=== PATIENT | female | born 1950 | race Caucasian/White ===

== ENCOUNTER 2020-08-20 17:44 | Emergency (ER) | payer MEDICARE ==
[~2020-08-20] VITALS: Ht 172.7 cm; Wt 82.7 kg
[~2020-08-20 17:44] MED LIST: CYCLOBENZAPRINE5 MG PO; GABAPENTIN300 MG PO; MOTRIN200 MG PO; OXYCODONE-ACET1 EAC1 PO; SYNTHROID50 MCG PO; [UNRECOGNIZED DRUG - OTHER]
== END 2020-08-20 19:05 | disposition home or self-care (01) ==
LOC: FSED 18:04
DX: S40.012A Contusion of left shoulder, initial encounter (principal); W18.30XA Fall on same level, unspecified, initial encounter; Y92.008 Other place in unspecified non-institutional (private) residence as the place of occurrence of the external cause; I10 Essential (primary) hypertension; I69.354 Hemiplegia and hemiparesis following cerebral infarction affecting left non-dominant side
CPT/HCPCS: 99283

== ENCOUNTER → 2020-11-30 | Day surgery (SDC) | payer MEDICARE ==
[2020-11-28 15:42] LABS: BASOPHILS # (AUTO) 0.1 (0.0-0.1); EOSINOPHILS # (AUTO) 0.3 (0.0-0.4); HEMATOCRIT 36.4 % (34.2-44.1); HEMOGLOBIN 10.8 g/dL (12.0-16.0); LYMPHOCYTES # (AUTO) 2.8 (1.0-3.2); LYMPHOCYTES % 44.6 % (18.0-39.1); MEAN CORPUSCULAR HEMOGLOBIN 24.9 pg (28-32); MEAN CORPUSCULAR HGB CONC 29.7 g/dL (31-35); MEAN CORPUSCULAR VOLUME 83.9 fL (81-99); MONOCYTES # (AUTO) 0.4 (0.2-0.8); MONOCYTES % 5.9 % (4.4-11.3); NEUTROPHILS # (AUTO) 2.7 (2.1-6.9); NEUTROPHILS % 43.2 % (38.7-80.0); PLATELET COUNT 223 x10e3/uL (140-360); RED BLOOD COUNT 4.34 x10e6/uL (3.6-5.1); RED CELL DISTRIBUTION WIDTH 14.8 % (11.7-14.4)
[~2020-11-30] MED LIST changes: +ADDERALL 5 MG TA5 MG; +ASPIRIN EC81 MG PO; +CYMBALTA30 MG PO; +FLOMAX0.4 MG PO; +LIDOCAINE HCL 2% LOCAL INJ 5 ML SDV VIAL INJ ONE; +LIPITOR20 MG PO; +METFORMIN HCL500 MG PO; +OXYCODONE HCL20 M1 PO; +PANTOPRAZOLE SO40 MG PO; +PLAVIX75 MG PO; +PROPOFOL IV EMULSION 10 MG/ML 20 ML VIAL ONE; +SYMBICORT 16010.2 GM INH; +TRAZODONE HCL150 MG PO; +TRULANCE3 MG; +VITAMIN D250 MCG; +WELLBUTRIN SR150 MG PO
[2020-11-30 09:46] VITALS: BP 106/67
== END | disposition home or self-care (01) ==
LOC: OR 06:57
PROVIDERS: ATTEND Internal Medicine Gastroenterology
DX: K22.70 Barrett's esophagus without dysplasia (principal); K44.9 Diaphragmatic hernia without obstruction or gangrene; K29.50 Unspecified chronic gastritis without bleeding; K57.30 Diverticulosis of large intestine without perforation or abscess without bleeding; K64.8 Other hemorrhoids; K59.00 Constipation, unspecified; R11.0 Nausea; E11.9 Type 2 diabetes mellitus without complications; E66.3 Overweight; Z68.29 Body mass index [BMI] 29.0-29.9, adult; Z71.3 Dietary counseling and surveillance; Z91.040 Latex allergy status; Z91.048 Other nonmedicinal substance allergy status; J44.9 Chronic obstructive pulmonary disease, unspecified; Z86.010 Personal history of colon polyps; F32.9 Major depressive disorder, single episode, unspecified; G47.33 Obstructive sleep apnea (adult) (pediatric); K76.0 Fatty (change of) liver, not elsewhere classified; K58.9 Irritable bowel syndrome, unspecified; K80.80 Other cholelithiasis without obstruction; K21.9 Gastro-esophageal reflux disease without esophagitis; Z01.810 Encounter for preprocedural cardiovascular examination; Z01.812 Encounter for preprocedural laboratory examination; Z79.82 Long term (current) use of aspirin; Z79.84 Long term (current) use of oral hypoglycemic drugs
CPT/HCPCS: 36415 ×2; 43239; 45378; 82948; 85025; 93005; J2001; J2704; U0002

== ENCOUNTER 2020-12-16 19:04 | Emergency (ER) | payer MEDICARE ==
[~2020-12-16] VITALS: Ht 172.7 cm; Wt 82.6 kg
[~2020-12-16 19:04] MED LIST changes: -LIDOCAINE HCL 2% LOCAL INJ 5 ML SDV VIAL INJ ONE; -PROPOFOL IV EMULSION 10 MG/ML 20 ML VIAL ONE
[2020-12-16] MEDS ORDERED: SODIUM CHLORIDE 0.9% 50ML 50 ML ONE (20:49)
[2020-12-16] MEDS ORDERED: IOPAMIDOL 370 MG/ML 200 ML INFUS..BTL INJ ONE (20:50)
[2020-12-16] MEDS ORDERED: ONDANSETRON ODT4 MG PO (22:39)
[2020-12-16] MEDS ORDERED: MIRALAX17 GM PO (22:39)
== END 2020-12-16 23:07 | disposition home or self-care (01) ==
LOC: FSED 19:30
DX: R09.02 Hypoxemia (principal); R10.30 Lower abdominal pain, unspecified; Z20.822 Contact with and (suspected) exposure to COVID-19; I10 Essential (primary) hypertension; R94.31 Abnormal electrocardiogram [ECG] [EKG]; Z86.73 Personal history of transient ischemic attack (TIA), and cerebral infarction without residual deficits
CPT/HCPCS: 71260; 74177; 80053; 82553; 83880; 84484; 85025; 85379; 93005; 99284; Q9967; U0002

== ENCOUNTER 2021-08-10 18:27 | Emergency (ER) | payer MEDICARE ==
[~2021-08-10] VITALS: Ht 172.7 cm; Wt 82.6 kg
[~2021-08-10 18:27] MED LIST changes: +MIRALAX17 GM PO; +ONDANSETRON ODT4 MG PO
[2021-08-10 19:12] LABS: BASOPHILS # (AUTO) 0.1 (0.0-0.1); BASOPHILS % 0.9 % (0.0-1.0); EOSINOPHILS # (AUTO) 0.2 (0.0-0.4); EOSINOPHILS % 2.1 % (0.0-6.0); HEMATOCRIT 38.6 % (34.2-44.1); HEMOGLOBIN 11.9 g/dL (12.0-16.0); LYMPHOCYTES # (AUTO) 3.9 (1.0-3.2); LYMPHOCYTES % 39.9 % (18.0-39.1); MEAN CORPUSCULAR HEMOGLOBIN 24.9 pg (28-32); MEAN CORPUSCULAR HGB CONC 30.8 g/dL (31-35); MEAN CORPUSCULAR VOLUME 80.8 fL (81-99); MONOCYTES # (AUTO) 0.6 (0.2-0.8); MONOCYTES % 6.3 % (4.4-11.3); NEUTROPHILS # (AUTO) 4.9 (2.1-6.9); NEUTROPHILS % 50.6 % (38.7-80.0); PLATELET COUNT 280 x10e3/uL (140-360); RED BLOOD COUNT 4.78 x10e6/uL (3.6-5.1); RED CELL DISTRIBUTION WIDTH 15.9 % (11.7-14.4)
[2021-08-10 19:21] LABS: INR 0.88; PROTHROMBIN TIME 12.8 seconds (11.9-14.5)
[2021-08-10 19:28] LABS: CLARITY,URINE CLEAR (CLEAR); COLOR,URINE YELLOW (YELLOW)
[2021-08-10 19:29] LABS: KETONES,URINE NEGATIVE (NEGATIVE); LEUKOCYTE ESTERASE ,URINE TRACE (NEGATIVE); NITRITE,URINE NEGATIVE (NEGATIVE); PROTEIN,URINE DIPSTICK NEGATIVE (NEGATIVE); URINE UROBILINOGEN 0.2 mg/dL (0.2 - 1)
[2021-08-10 19:30] LABS: ALBUMIN 3.7 g/dL (3.5-5.0); ALBUMIN/GLOBULIN RATIO 1.1 (0.8-2.0); ANION GAP 12.1 mmol/L (8-16); CREATININE, SERUM 0.91 mg/dL (0.57-1.11); POTASSIUM 4.1 mmol/L (3.5-5.1)
[2021-08-10 19:37] LABS: BACTERIA,URINE FEW /HPF; EPITHELIAL CELLS,URINE MODERATE /LPF; RBC,URINE 0-5 /HPF (0-5); WBC,URINE (MAN) 0-5 /HPF (0-5)
[2021-08-10] MEDS ORDERED: SODIUM CHLORIDE 0.9% 100 ML ONE (20:05)
[2021-08-10] MEDS ORDERED: IOPAMIDOL 370 MG/ML 200 ML INFUS..BTL INJ ONE (20:05)
[2021-08-10] MEDS ORDERED: SODIUM CHLORIDE 0.9% 1000ML 1,000 ML IV STA (21:16)
[2021-08-10] MEDS ORDERED: SODIUM CHLORIDE 0.9% 1000ML 1,000 ML ONE (21:28)
[2021-08-10 22:24] VITALS: BP 100/65
== END 2021-08-10 22:29 | disposition home or self-care (01) ==
LOC: ER 18:37
DX: K92.2 Gastrointestinal hemorrhage, unspecified (principal); K76.0 Fatty (change of) liver, not elsewhere classified; I10 Essential (primary) hypertension; Z91.040 Latex allergy status; Z91.048 Other nonmedicinal substance allergy status; Z20.822 Contact with and (suspected) exposure to COVID-19; Z79.82 Long term (current) use of aspirin; Z79.02 Long term (current) use of antithrombotics/antiplatelets; Z79.84 Long term (current) use of oral hypoglycemic drugs; Z79.899 Other long term (current) drug therapy; Z86.73 Personal history of transient ischemic attack (TIA), and cerebral infarction without residual deficits
CPT/HCPCS: 36415; 74174; 80053; 81001; 85025; 85610; 86850; 86900; 93005; 99284; J7030; J7050; Q9967; U0002

== ENCOUNTER 2021-10-02 00:59 | Observation (INO) | payer MEDICARE ==
[~2021-10-02] VITALS: Ht 165.1 cm; Wt 88.5 kg
[2021-10-02] MEDS ORDERED: ACETAMINOPHEN 325 MG TAB PO ONE (01:15)
[2021-10-02] MEDS ORDERED: SODIUM CHLORIDE 0.9% 1000ML 1,000 ML IV ONE (01:15)
[2021-10-02] MEDS ORDERED: ACETAMINOPHEN 325 MG TAB ONE (01:22)
[2021-10-02 01:28] LABS: BASOPHILS # (AUTO) 0.1 (0.0-0.1); BASOPHILS % 0.7 % (0.0-1.0); EOSINOPHILS # (AUTO) 0.4 (0.0-0.4); EOSINOPHILS % 4.2 % (0.0-6.0); HEMATOCRIT 35.8 % (34.2-44.1); HEMOGLOBIN 10.8 g/dL (12.0-16.0); LYMPHOCYTES # (AUTO) 1.5 (1.0-3.2); MEAN CORPUSCULAR HEMOGLOBIN 24.3 pg (28-32); MEAN CORPUSCULAR HGB CONC 30.2 g/dL (31-35); MEAN CORPUSCULAR VOLUME 80.6 fL (81-99); MONOCYTES # (AUTO) 0.5 (0.2-0.8); MONOCYTES % 5.9 % (4.4-11.3); NEUTROPHILS # (AUTO) 6.2 (2.1-6.9); NEUTROPHILS % 71.9 % (38.7-80.0); PLATELET COUNT 268 x10e3/uL (140-360); RED BLOOD COUNT 4.44 x10e6/uL (3.6-5.1)
[2021-10-02] MEDS ORDERED: CEFTRIAXONE 1 GM VIAL ONE (01:29)
[2021-10-02] MEDS ORDERED: SODIUM CHLORIDE 0.9% 1000ML 1,000 ML ONE (01:29)
[2021-10-02 01:45] LABS: ALANINE AMINOTRANSFERASE 16 IU/L (0-55); ALBUMIN 3.6 g/dL (3.5-5.0); ALKALINE PHOSPHATASE 89 IU/L (40-150); ANION GAP 15.1 mmol/L (8-16); BLOOD UREA NITROGEN 10 mg/dL (7-26); BUN/CREATININE RATIO 12 (6-25); CALCIUM 9.2 mg/dL (8.4-10.2); CARBON DIOXIDE 23 mmol/L (22-29); CHLORIDE 105 mmol/L (98-107); CREATINE KINASE 80 IU/L (29-168); CREATININE, SERUM 0.83 mg/dL (0.57-1.11); GLUCOSE 115 mg/dL (74-118); POTASSIUM 4.1 mmol/L (3.5-5.1); SODIUM 139 mmol/L (136-145)
[2021-10-02 01:48] LABS: CLARITY,URINE CLEAR (CLEAR); COLOR,URINE YELLOW (YELLOW); KETONES,URINE NEGATIVE (NEGATIVE); LEUKOCYTE ESTERASE ,URINE NEGATIVE (NEGATIVE); NITRITE,URINE NEGATIVE (NEGATIVE); PROTEIN,URINE DIPSTICK NEGATIVE (NEGATIVE); URINE UROBILINOGEN 0.2 mg/dL (0.2 - 1)
[2021-10-02 01:55] LABS: BACTERIA,URINE FEW /HPF; EPITHELIAL CELLS,URINE RARE /LPF; RBC,URINE 0-5 /HPF (0-5); WBC,URINE (MAN) 0-5 /HPF (0-5)
[2021-10-02] MEDS ORDERED: ONDANSETRON HCL INJ 2MG/ML 2ML 2 MG/ML VIAL IV STA (03:10)
[2021-10-02] MEDS ORDERED: ONDANSETRON HCL INJ 2MG/ML 2ML 2 MG/ML VIAL IV PRN (03:30)
[2021-10-02] MEDS: SODIUM CHLORIDE 0.9% 1000ML 1,000 ML IV SCH ×3 (03:36→21:36)
[2021-10-02] MEDS: ALBUTEROL SULF 0.083% NEB SOLN 3 ML NEB NEB SCH ×6 (04:00→23:30)
[2021-10-02] MEDS: IPRATROPIUM BROMIDE 0.02% 2.5 ML NEB NEB SCH ×5 (04:00→23:46)
[2021-10-02] MEDS ORDERED: IOPAMIDOL 370 MG/ML 100 ML INFUS..BTL INJ ONE (07:05)
[2021-10-02 09:53] LABS: CREATINE KINASE 58 IU/L (29-168)
[2021-10-02] MEDS: OXYCODONE HCL 10 MG TAB CR PO SCH ×2 (14:36→21:00)
[2021-10-02] MEDS ORDERED: NON-FORMULARY MEDICATION (Cyclobenzaprine Hcl (Flexeril) 10 MG) PO SCH (15:00)
[2021-10-02] MEDS: CYCLOBENZAPRINE HCL 10 MG TAB PO SCH ×2 (15:25→21:37)
[2021-10-02] MEDS: ACETAMINOPHEN 325 MG TAB PO PRN ×2 (15:50→22:08)
[2021-10-02 18:22] LABS: CREATINE KINASE 82 IU/L (29-168)
[2021-10-02 19:00] VITALS: BP 125/66
[2021-10-02 19:49] VITALS: BP 125/66
[2021-10-02] MEDS: TRAZODONE HCL 50 MG TAB PO SCH (21:36)
[2021-10-02] MEDS: ATORVASTATIN 40 MG TAB PO SCH (21:37)
[2021-10-03] VITALS (8 sets, daily range): BP systolic 108–137; BP diastolic 62–74
[2021-10-03] MEDS ORDERED: GABAPENTIN400 MG PO (00:32)
[2021-10-03] MEDS: SODIUM CHLORIDE 0.9% 1000ML 1,000 ML IV SCH ×3 (00:33→20:05)
[2021-10-03] MEDS: ALBUTEROL SULF 0.083% NEB SOLN 3 ML NEB NEB SCH ×5 (03:06→20:16)
[2021-10-03] MEDS: IPRATROPIUM BROMIDE 0.02% 2.5 ML NEB NEB SCH ×2 (03:07→18:52)
[2021-10-03 05:53] LABS: BASOPHILS # (AUTO) 0.1 (0.0-0.1); BASOPHILS % 1.3 % (0.0-1.0); EOSINOPHILS # (AUTO) 0.2 (0.0-0.4); EOSINOPHILS % 3.5 % (0.0-6.0); HEMATOCRIT 31.2 % (34.2-44.1); HEMOGLOBIN 9.2 g/dL (12.0-16.0); LYMPHOCYTES # (AUTO) 1.7 (1.0-3.2); LYMPHOCYTES % 38.1 % (18.0-39.1); MEAN CORPUSCULAR HEMOGLOBIN 24.4 pg (28-32); MEAN CORPUSCULAR HGB CONC 29.5 g/dL (31-35); MEAN CORPUSCULAR VOLUME 82.8 fL (81-99); MONOCYTES # (AUTO) 0.6 (0.2-0.8); MONOCYTES % 12.7 % (4.4-11.3); NEUTROPHILS % 44.2 % (38.7-80.0); PLATELET COUNT 215 x10e3/uL (140-360); RED BLOOD COUNT 3.77 x10e6/uL (3.6-5.1); RED CELL DISTRIBUTION WIDTH 15.5 % (11.7-14.4)
[2021-10-03] MEDS: LEVOTHYROXINE SODIUM 25 MCG TABLET PO SCH (06:13)
[2021-10-03] MEDS: LEVOTHYROXINE SODIUM 112 MCG TAB PO SCH (06:13)
[2021-10-03] MEDS: ACETAMINOPHEN 325 MG TAB PO PRN ×2 (06:13→17:25)
[2021-10-03 06:14] LABS: ALBUMIN 2.8 g/dL (3.5-5.0); ANION GAP 12.5 mmol/L (8-16); CALCIUM 7.9 mg/dL (8.4-10.2); CREATININE, SERUM 0.64 mg/dL (0.57-1.11); POTASSIUM 3.5 mmol/L (3.5-5.1)
[2021-10-03] MEDS ORDERED: LEVOTHYROXINE SODIUM 50 MCG TAB PO SCH (06:30)
[2021-10-03] MEDS: TAMSULOSIN HCL 0.4 MG CAP PO SCH (09:00)
[2021-10-03] MEDS: OXYCODONE HCL 10 MG TAB CR PO SCH ×3 (09:11→20:05)
[2021-10-03] MEDS: PANTOPRAZOLE SOD 40 MG TABEC PO SCH (09:11)
[2021-10-03] MEDS: CLOPIDOGREL BISULFATE 75 MG TAB PO SCH (09:11)
[2021-10-03] MEDS: DULOXETINE HCL 30 MG DELAYED RELEASE PO SCH (09:11)
[2021-10-03] MEDS: CYCLOBENZAPRINE HCL 10 MG TAB PO SCH ×3 (09:11→20:05)
[2021-10-03] MEDS: GABAPENTIN 400 MG CAP PO SCH ×3 (09:11→20:05)
[2021-10-03] MEDS ORDERED: LOPERAMIDE HCL 2 MG CAP PO ONE (15:15)
[2021-10-03] MEDS: ASPIRIN 81 MG ENTERIC COATED PO SCH (17:25)
[2021-10-03] MEDS: METFORMIN HCL 500 MG TAB PO SCH (17:25)
[2021-10-03] MEDS ORDERED: ONDANSETRON HCL 4 MG ORAL DISINTEGRATING TAB PO PRN (19:30)
[2021-10-03] MEDS ORDERED: CALCIUM CARBONATE 500 MG CHEWABLE TABS PO PRN (19:45)
[2021-10-03] MEDS: TRAZODONE HCL 50 MG TAB PO SCH (20:05)
[2021-10-03] MEDS: ATORVASTATIN 40 MG TAB PO SCH (20:05)
[2021-10-03] MEDS ORDERED: TRAZODONE HCL 50 MG TAB PO SCH (21:00)
[2021-10-04] VITALS: BP 114/53
[2021-10-04] MEDS: ALBUTEROL SULF 0.083% NEB SOLN 3 ML NEB NEB SCH ×4 (00:17→10:15)
[2021-10-04] MEDS: IPRATROPIUM BROMIDE 0.02% 2.5 ML NEB NEB SCH ×3 (00:18→10:15)
[2021-10-04] MEDS: ACETAMINOPHEN 325 MG TAB PO PRN ×2 (00:43→12:13)
[2021-10-04 04:00] VITALS: BP 113/67
[2021-10-04] MEDS: LEVOTHYROXINE SODIUM 112 MCG TAB PO SCH (05:57)
[2021-10-04] MEDS: LEVOTHYROXINE SODIUM 25 MCG TABLET PO SCH (05:57)
[2021-10-04] MEDS ORDERED: AZITHROMYCIN 250 MG TAB PO SCH (06:00)
[2021-10-04] MEDS: SODIUM CHLORIDE 0.9% 1000ML 1,000 ML IV SCH ×2 (06:19→11:15)
[2021-10-04] MEDS: METFORMIN HCL 500 MG TAB PO SCH (08:00)
[2021-10-04 08:30] VITALS: BP 125/77
[2021-10-04] MEDS: TAMSULOSIN HCL 0.4 MG CAP PO SCH (09:00)
[2021-10-04 09:43] LABS: BASOPHILS # (AUTO) 0.1 (0.0-0.1); BASOPHILS % 1.5 % (0.0-1.0); EOSINOPHILS # (AUTO) 0.3 (0.0-0.4); EOSINOPHILS % 5.5 % (0.0-6.0); HEMATOCRIT 34.9 % (34.2-44.1); HEMOGLOBIN 9.8 g/dL (12.0-16.0); LYMPHOCYTES # (AUTO) 2.5 (1.0-3.2); MEAN CORPUSCULAR HEMOGLOBIN 24.2 pg (28-32); MEAN CORPUSCULAR HGB CONC 28.1 g/dL (31-35); MEAN CORPUSCULAR VOLUME 86.2 fL (81-99); MONOCYTES # (AUTO) 0.6 (0.2-0.8); MONOCYTES % 10.4 % (4.4-11.3); NEUTROPHILS # (AUTO) 1.8 (2.1-6.9); NEUTROPHILS % 34.4 % (38.7-80.0); PLATELET COUNT 209 x10e3/uL (140-360); RED BLOOD COUNT 4.05 x10e6/uL (3.6-5.1); RED CELL DISTRIBUTION WIDTH 15.8 % (11.7-14.4)
[2021-10-04 09:45] VITALS: BP 125/77
[2021-10-04] MEDS: DULOXETINE HCL 30 MG DELAYED RELEASE PO SCH (10:04)
[2021-10-04] MEDS: PANTOPRAZOLE SOD 40 MG TABEC PO SCH (10:04)
[2021-10-04] MEDS: CLOPIDOGREL BISULFATE 75 MG TAB PO SCH (10:04)
[2021-10-04] MEDS: CYCLOBENZAPRINE HCL 10 MG TAB PO SCH (10:04)
[2021-10-04] MEDS: GABAPENTIN 400 MG CAP PO SCH (10:04)
[2021-10-04] MEDS: OXYCODONE HCL 10 MG TAB CR PO SCH (10:04)
[2021-10-04 10:30] LABS: ALBUMIN/GLOBULIN RATIO 1.1 (0.8-2.0); ANION GAP 11.5 mmol/L (8-16); CALCIUM 8.6 mg/dL (8.4-10.2); CREATININE, SERUM 0.71 mg/dL (0.57-1.11); POTASSIUM 3.5 mmol/L (3.5-5.1)
[2021-10-04 12:02] VITALS: BP 124/69
[2021-10-04] MEDS: ASPIRIN 81 MG ENTERIC COATED PO SCH (12:12)
== END 2021-10-04 14:49 | disposition home or self-care (01) ==
LOC: ER 01:12 → ERHOLD 03:13 → MED/SURG2 17:38
PROVIDERS: ADMIT Family Medicine; ATTEND Family Medicine
DX: J18.9 Pneumonia, unspecified organism (principal); R09.02 Hypoxemia; Z91.040 Latex allergy status; Z91.048 Other nonmedicinal substance allergy status; R41.0 Disorientation, unspecified; Z86.73 Personal history of transient ischemic attack (TIA), and cerebral infarction without residual deficits; I10 Essential (primary) hypertension; E78.5 Hyperlipidemia, unspecified; F11.20 Opioid dependence, uncomplicated; J96.01 Acute respiratory failure with hypoxia
CPT/HCPCS: 36415 ×3; 71045 ×2; 71260; 80053 ×3; 81001; 82550; 82553; 82948 ×3; 83605; 83880; 84484; 85025 ×3; 87040; 93005; 94640 ×4; 94799 ×3; 96360; 96361; 99284; G0378 ×3; J0456 ×2; J0696 ×3; J7030 ×3; J7050 ×2; Q9967; S0164 ×2; U0002

== ENCOUNTER 2021-12-20 06:54 | Emergency (ER) | payer MEDICARE ==
[~2021-12-20] VITALS: Ht 165.1 cm; Wt 88.5 kg
[~2021-12-20 06:54] MED LIST changes: +GABAPENTIN400 MG PO
[2021-12-20 07:28] LABS: BASOPHILS % 0.4 % (0.0-1.0); EOSINOPHILS # (AUTO) 0.1 (0.0-0.4); HEMATOCRIT 35.5 % (34.2-44.1); HEMOGLOBIN 10.6 g/dL (12.0-16.0); LYMPHOCYTES # (AUTO) 1.4 (1.0-3.2); LYMPHOCYTES % 13.6 % (18.0-39.1); MEAN CORPUSCULAR HEMOGLOBIN 23.2 pg (28-32); MEAN CORPUSCULAR HGB CONC 29.9 g/dL (31-35); MEAN CORPUSCULAR VOLUME 77.9 fL (81-99); MONOCYTES # (AUTO) 0.5 (0.2-0.8); MONOCYTES % 4.5 % (4.4-11.3); NEUTROPHILS # (AUTO) 8.2 (2.1-6.9); NEUTROPHILS % 80.2 % (38.7-80.0); PLATELET COUNT 250 x10e3/uL (140-360); RED BLOOD COUNT 4.56 x10e6/uL (3.6-5.1); RED CELL DISTRIBUTION WIDTH 15.8 % (11.7-14.4)
[2021-12-20] MEDS ORDERED: SODIUM CHLORIDE 0.9% 1000ML 1,000 ML IV SCH (07:30)
[2021-12-20 07:42] LABS: CLARITY,URINE CLEAR (CLEAR); COLOR,URINE YELLOW (YELLOW); KETONES,URINE NEGATIVE (NEGATIVE); LEUKOCYTE ESTERASE ,URINE NEGATIVE (NEGATIVE); NITRITE,URINE NEGATIVE (NEGATIVE); PROTEIN,URINE DIPSTICK NEGATIVE (NEGATIVE); URINE UROBILINOGEN 0.2 mg/dL (0.2 - 1)
[2021-12-20 07:44] LABS: INR 0.9
[2021-12-20 07:45] LABS: PARTIAL THROMBOPLASTIN TIME 29.3 seconds (23.8-35.5)
[2021-12-20] MEDS ORDERED: FAMOTIDINE 20 MG/2 ML VIAL IV STA (07:45)
[2021-12-20 07:51] LABS: ALBUMIN 3.4 g/dL (3.5-5.0); ALBUMIN/GLOBULIN RATIO 1.1 (0.8-2.0); ANION GAP 15.5 mmol/L (8-16); CALCIUM 8.8 mg/dL (8.4-10.2); CREATININE, SERUM 0.76 mg/dL (0.57-1.11); POTASSIUM 4.5 mmol/L (3.5-5.1)
[2021-12-20 07:54] LABS: BACTERIA,URINE FEW /HPF; EPITHELIAL CELLS,URINE FEW /LPF; RBC,URINE 0-5 /HPF (0-5); WBC,URINE (MAN) 0-5 /HPF (0-5)
[2021-12-20] MEDS ORDERED: ALBUTEROL2.5 MG/0.5 INH (09:04)
[2021-12-20] MEDS ORDERED: PROAIR HFA INH8.5 GM INH (09:04)
[2021-12-20] MEDS ORDERED: ONDANSETRON ODT4 MG PO (09:04)
== END 2021-12-20 10:14 | disposition home or self-care (01) ==
LOC: ER 07:00
DX: R11.2 Nausea with vomiting, unspecified (principal); J44.9 Chronic obstructive pulmonary disease, unspecified; I10 Essential (primary) hypertension; E11.9 Type 2 diabetes mellitus without complications; D64.9 Anemia, unspecified; F41.9 Anxiety disorder, unspecified; K21.9 Gastro-esophageal reflux disease without esophagitis; I69.354 Hemiplegia and hemiparesis following cerebral infarction affecting left non-dominant side; Z20.822 Contact with and (suspected) exposure to COVID-19
CPT/HCPCS: 36415; 71045; 80053; 81001; 83605; 84484; 85025; 85610; 85730; 87040; 87086; 93005; 94760; 99284; J0456; J0696; J7030; J7050; U0002